=== PATIENT | female | born 1995 | race Caucasian/White ===

== ENCOUNTER 2016-07-01 00:37 | Emergency (ER) | payer OTHER ==
[2016-07-01] MEDS ORDERED: ONDANSETRON 4 MG/2 ML VIAL ONE (01:02)
[2016-07-01] MEDS ORDERED: ONDANSETRON 4 MG/2 ML VIAL IVP ONE (01:04)
--- NOTE | 2016-07-01 01:24 | EDPHY ---
H & P Stated Complaint: etoh - Personal History Current Tetanus/Diphtheria Vaccine: Yes Current Tetanus Diphtheria and Acellular Pertussis (TDAP): Yes - Medical/Surgical History Hx Asthma: No Hx Chronic Respiratory Disease: No Hx Diabetes: No Hx Cardiac Disease: No Hx Renal Disease: No Hx Cirrhosis: No Hx Alcoholism: No Hx HIV/AIDS: No Hx Splenectomy or Spleen Trauma: No - Social History Smoking Status: Never smoked Time Seen by Provider: 07/01/16 01:14 HPI/ROS: Chief complaint: Alcohol intoxication History of present illness: This is a 20-year-old female brought to the emergency department by EMS after being found intoxicated. Patient does admit to drinking alcohol this evening. She is nauseated. I am not able to hold a full conversation with her. She does admit to drinking alcohol and feeling nauseated, she denies other complaints. Review of systems: Unable to obtain given level of intoxication (Aldo Kelley) - Physical Exam Exam: General Appearance: Alert, heavy odor of alcohol on breath ENT: No hemotympanum, no varela sign, no raccoon eyes Eyes: PERRLA Respiratory: Lungs clear to auscultation bilaterally Cardiac: Regular rate and rhythm. Gastrointestinal: Bowel sounds normal. Abdomen soft, nondistended, nontender. Neurological: Patient is alert. Strength and sensation intact and symmetrical. Skin: Head-to-toe examination does not reveal lesions consistent with trauma. Musculoskeletal: No apparent tenderness on palpation of the head, no bony deformity. The spine is without apparent tenderness, no crepitus, bony deformity or step-off. Chest wall is intact palpation without crepitus or subcutaneous air. Patient moving all extremities well. (Aldo Kelley) Constitutional: Initial Vital Signs Temperature (C) 36.4 C 07/01/16 00:50 Heart Rate 78 07/01/16 00:50 Respiratory Rate 18 07/01/16 00:50 Blood Pressure 133/79 H 07/01/16 00:50 O2 Sat (%) 96 07/01/16 00:50 O2 Delivery Mode Room Air Allergies/Adverse Reactions: No Known Allergies Allergy (Unverified 07/01/16 01:14) Home Medications: Medication Instructions Recorded Controll 07/01/16 Medical Decision Making ED Course/Re-evaluation: Patient seen under the supervision of my secondary supervising physician Dr. Arabella Gallegos. Patient brought to the emergency department by EMS for alcohol intoxication. There is a heavy odor of alcohol on her breath, she does appear intoxicated. She is nontoxic. Vital signs are stable. Physical exam is benign. No evidence of further illness or any trauma. She is allowed to sober up and is well-appearing, she has no complaints. She will be discharged with a sober ride. (Aldo Kelley) Differential Diagnosis: Included but not limited to alcohol intoxication alcohol withdrawal, polysubstance abuse (Aldo Kelley) Other Provider: PHYSICIAN DOCUMENTATION: The patient was evaluated and managed by the Physician [employer]r. My co- signature indicates that I have reviewed this chart and I agree with the findings and plan of care as documented. I am the secondary supervising physician. (Arabella Gallegos) - Data Points Medications Given: Discontinued Medications Ondansetron HCl (Zofran) 4 mg IVP EDNOW ONE Stop: 07/01/16 01:05 Last Admin: 07/01/16 01:04 Dose: 4 mg Departure - Departure Disposition: Home, Routine, Self-Care Clinical Impression: Alcoholic intoxication Qualifiers: Complication of substance-induced condition: uncomplicated Qualified Code(s): F10.120 - Alcohol abuse with intoxication, uncomplicated Condition: Good Instructions: Alcohol Intoxication (ED) Additional Instructions: Follow-up with a primary care doctor next week for recheck Drink plenty of fluids to stay hydrated Stop drinking alcohol If symptoms worsen or new symptoms develop return to the emergency department for recheck Referrals: Patient,NotPresent [Primary Care Provider] - As per Instructions Michael Montes MD [Medical Doctor] - As per Instructions
[2016-07-01 01:26] VITALS: O2SAT 96
[2016-07-01 05:17] VITALS: BP 123/71; PULSE 70; RESP 16; TEMP 98.1
== END 2016-07-01 02:55 | disposition home or self-care (01) ==
DX: F10.120 Alcohol abuse with intoxication, uncomplicated (principal)
CPT/HCPCS: 96374; J2405